=== PATIENT | male | born 1960 | race Caucasian/White ===

== ENCOUNTER 2018-03-26 19:30 | Emergency (ER) | payer OTHER ==
[2018-03-26 19:36] VITALS: BP 124/74
== END 2018-03-26 22:24 | disposition left against medical advice (07) ==
LOC: ED 19:30
DX: Z53.21 Procedure and treatment not carried out due to patient leaving prior to being seen by health care provider (principal)

== ENCOUNTER 2018-03-28 00:12 | Inpatient (IN) | payer OTHER ==
[~2018-03-28] VITALS: Ht 175.3 cm; Wt 119.1 kg
[2018-03-28] VITALS (8 sets, daily range): BP systolic 100–146; BP diastolic 52–91; Ht 175.3 cm; Wt 119.1 kg
[2018-03-28] MEDS ORDERED: LOVASTATIN20 MG (01:02)
[2018-03-28] MEDS ORDERED: INVOKAMET1 TAB (01:02)
[2018-03-28] MEDS ORDERED: LISINOPRIL1 PO1 PO (01:02)
[2018-03-28] MEDS ORDERED: METFORMIN HYDR500 M1 PO (01:02)
[2018-03-28] MEDS ORDERED: ASPIR 8181 MG PO (01:02)
[2018-03-28] MEDS ORDERED: JANUVIA100 M1 (01:02)
[2018-03-28] MEDS ORDERED: CIPROFLOXACIN500 MG PO (01:03)
[2018-03-28] MEDS ORDERED: NAPROSYN500 MG PO ×2 (01:03→13:15)
[2018-03-28 01:27] LABS: BASOPHIL % 0.3 % (0-2); PLATELET COUNT 245 x10^3mcL (130-400); RED CELL DISTRIBUTION WIDTH 12.5 % (11.5-14.5)
[2018-03-28 01:43] LABS: CALCIUM 8.8 mg/dL (8.5-10.1); CREATININE SERUM 1.5 mg/dL (0.7-1.3); POTASSIUM SERUM 3.9 mmol/L (3.5-5.1)
[2018-03-28 01:48] LABS: ALBUMIN 3.5 g/dL (3.4-5.0); BILIRUBIN TOTAL 0.5 mg/dL (0.20-1.00); TOTAL PROTEIN, SERUM 7.5 g/dL (6.4-8.2)
[2018-03-28 05:44] LABS: BASOPHIL % 0.5 % (0-2); PLATELET COUNT 192 x10^3mcL (130-400); RED CELL DISTRIBUTION WIDTH 12.6 % (11.5-14.5)
[2018-03-28 06:03] LABS: BILIRUBIN TOTAL 0.4 mg/dL (0.20-1.00); CARBON DIOXIDE 25.5 mmol/L (21-32); CREATININE SERUM 1.4 mg/dL (0.7-1.3); POTASSIUM SERUM 4.1 mmol/L (3.5-5.1); TOTAL PROTEIN, SERUM 6.2 g/dL (6.4-8.2)
[2018-03-28 06:11] LABS: ALBUMIN 2.7 g/dL (3.4-5.0)
[2018-03-28] MEDS ORDERED: ZESTRIL20 MG PO (13:14)
[2018-03-28] MEDS ORDERED: LOVASTATIN20 MG PO (13:16)
[2018-03-29 06:00] VITALS: BP 124/79
[2018-03-29 06:34] LABS: ALKALINE PHOSPHATASE 47 U/L (46-116); ALT/SGPT 16 U/L (16-63); AST/SGOT 18 U/L (15-37); BILIRUBIN TOTAL 0.52 mg/dL (0.20-1.00); CALCIUM 9.1 mg/dL (8.5-10.1); CARBON DIOXIDE 27.8 mmol/L (21-32); CHLORIDE SERUM 107 mmol/L (98-107); CREATININE SERUM 1.3 mg/dL (0.7-1.3); GFR1 > 60 mL/min; GLUCOSE SERUM 120 mg/dL (74-106); PHOSPHOROUS 3.2 mg/dL (2.5-4.9); POTASSIUM SERUM 4.4 mmol/L (3.5-5.1); SODIUM SERUM 142 mmol/L (136-145); TOTAL PROTEIN, SERUM 7.4 g/dL (6.4-8.2)
[2018-03-29 06:47] LABS: ALBUMIN 3.3 g/dL (3.4-5.0)
[2018-03-29 09:26] VITALS: BP 135/84
[2018-03-29 18:04] VITALS: BP 135/70
[2018-03-29 20:56] VITALS: BP 120/76
[2018-03-30 05:48] LABS: microscopic required? NO
[2018-03-30 05:55] VITALS: BP 117/79
[2018-03-30 06:06] LABS: UA SPECIFIC GRAVITY 1.015 (1.005-1.035); urine erythrocyte NEGATIVE (NEGATIVE)
[2018-03-30 06:51] LABS: BASOPHIL % 0.4 % (0-2)
[2018-03-30 07:00] LABS: PLATELET COUNT 254 x10^3mcL (130-400); RED CELL DISTRIBUTION WIDTH 12.7 % (11.5-14.5)
[2018-03-30 09:04] VITALS: BP 116/80
[2018-03-30 11:45] VITALS: BP 109/81
[2018-03-30 15:53] VITALS: BP 126/73
[2018-03-30 16:51] VITALS: BP 106/63
[2018-03-31 08:47] LABS: microalbumin:creatinine ratio 53.5 (0.0-30.0)
== END 2018-03-30 18:13 | disposition home or self-care (01) | DRG 314 ==
LOC: ED 00:12 → MU 01:00
PROVIDERS: Emergency Medicine; Internal Medicine; Internal Medicine Pulmonary Disease; Podiatrist Foot & Ankle Surgery
PROC: 0Y6R0Z0 Detachment at Right 2nd Toe, Complete, Open Approach (ICD-10-PCS; principal; 2018-03-30 12:30)
DX: E11.69 Type 2 diabetes mellitus with other specified complication (principal); E11.22 Type 2 diabetes mellitus with diabetic chronic kidney disease; N18.3 Chronic kidney disease, stage 3 (moderate); M80.871A Other osteoporosis with current pathological fracture, right ankle and foot, initial encounter for fracture; L97.516 Non-pressure chronic ulcer of other part of right foot with bone involvement without evidence of necrosis; M86.8X7 Other osteomyelitis, ankle and foot; B35.1 Tinea unguium; D63.8 Anemia in other chronic diseases classified elsewhere; E11.621 Type 2 diabetes mellitus with foot ulcer; E11.42 Type 2 diabetes mellitus with diabetic polyneuropathy; L03.031 Cellulitis of right toe; E66.9 Obesity, unspecified; L02.611 Cutaneous abscess of right foot; I12.9 Hypertensive chronic kidney disease with stage 1 through stage 4 chronic kidney disease, or unspecified chronic kidney disease; Z68.38 Body mass index [BMI] 38.0-38.9, adult; Z79.84 Long term (current) use of oral hypoglycemic drugs; Z79.899 Other long term (current) drug therapy; Z79.82 Long term (current) use of aspirin
CPT/HCPCS: 82962; 94150; J0696; J1650; J3010; J3490; J7030; J7040; Q0092